=== PATIENT | male | born 1955 | race Caucasian/White ===

== ENCOUNTER 2017-09-06 08:17 | Emergency (ER) | payer BC, OTHER ==
[2017-09-06] MEDS ORDERED: Aspirin 81 MG Tab.Chew PO ONE (08:29)
[2017-09-06] MEDS ORDERED: Sodium Chloride 0.9% 10 ML Syringe FLUSH PRN (08:29)
--- NOTE | 2017-09-06 08:35 | EDM.PDOC ---
ED HPI GENERAL MEDICAL PROBLEM - General Chief Complaint: Chest Pain Stated Complaint: CHEST PAIN Time Seen by Provider: 09/06/17 08:24 Source of Information: Reports: Patient History Limitations: Reports: No Limitations - History of Present Illness INITIAL COMMENTS - FREE TEXT/NARRATIVE: The patient presents with chest pain. He said he had an episode yesterday and again this morning when he was at work. The pain was like a charley horse in his left chest. He had some shortness of breath with it. He had no nausea and he was not diaphoretic. He says the pain is gone now. He did not take aspirin. He had stents placed in his coronary arteries about 4 years ago. He sees NICO Kevin at [facility]. He still smokes and he has hypertension and hypercholesterolemia. Onset: Gradual Duration: Day(s): (Yesterday) Location: Reports: Chest Quality: Reports: Other ("Eddy Horse") Severity: Moderate (gone now) Improves with: Reports: None Worsens with: Reports: None Context: Reports: Activity (He was at work) Associated Symptoms: Reports: Chest Pain, Shortness of Breath - Related Data Allergies Allergy/AdvReac Type Severity Reaction Status Date / Time penicillin V Allergy Rash Verified 09/06/17 08:25 Home Meds: Home Meds Lisinopril 5 mg PO DAILY 09/06/17 [History] Nebivolol [Bystolic] 10 mg PO DAILY 09/06/17 [History] amLODIPine Besylate [Amlodipine Besylate] 10 mg PO DAILY 09/06/17 [History] atorvaSTATin [Lipitor] 10 mg PO DAILY 09/06/17 [History] ED ROS GENERAL - Review of Systems Review Of Systems: See Below Constitutional: Reports: No Symptoms HEENT: Reports: No Symptoms Respiratory: Reports: Shortness of Breath Cardiovascular: Reports: Chest Pain Endocrine: Reports: No Symptoms GI/Abdominal: Reports: No Symptoms : Reports: No Symptoms Musculoskeletal: Reports: No Symptoms ED EXAM, GENERAL - Physical Exam Exam: See Below Exam Limited By: No Limitations General Appearance: Alert, No Apparent Distress Ears: Normal External Exam Nose: Normal Inspection Head: Atraumatic, Normocephalic Neck: Normal Inspection Respiratory/Chest: No Respiratory Distress, Lungs Clear, Normal Breath Sounds Cardiovascular: Regular Rate, Rhythm, No Edema, No Murmur GI/Abdominal: Soft, Non-Tender, No Organomegaly, No Mass Back Exam: Normal Inspection Extremities: Normal Inspection Neurological: Alert, Oriented, No Motor/Sensory Deficits EKG INTERPRETATION EKG Date: 09/06/17 Time: 08:21 Rhythm: NSR Rate (Beats/Min): 62 [place]: Normal P-Wave: Present QRS: LBBB ST-T: Normal QT: Normal Course - Vital Signs Last Recorded V/S: Last Vital Signs Temp 97.4 F 09/06/17 08:21 Pulse 64 09/06/17 08:21 Resp 16 09/06/17 08:21 BP 176/97 H 09/06/17 08:21 Pulse Ox - Orders/Labs/Meds Orders: Active Orders 24 hr Category Date Time Status Cardiac Monitoring [RC] . DIRECTED Care 09/06/17 08:29 Active EKG Documentation Completion [RC] STAT Care 09/06/17 08:29 Active Oxygen Therapy [RC] PRN Care 09/06/17 08:29 Active Peripheral IV Care [RC] . DIRECTED Care 09/06/17 08:29 Active Sodium Chloride 0.9% [Saline Flush] Med 09/06/17 08:29 Active 10 ml FLUSH ASDIRECTED PRN Peripheral IV Insertion Adult [OM.PC] Stat Oth 09/06/17 08:29 Ordered Medication Orders Sodium Chloride (Saline Flush) 10 ml FLUSH ASDIRECTED PRN PRN Reason: Keep Vein Open Last Admin: 09/06/17 08:25 Dose: 10 ml Labs: Laboratory Tests 09/06/17 09/06/17 Range/Units 08:56 08:56 WBC 5.76 (4.23-9.07) K/mm3 RBC 5.08 (4.63-6.08) M/mm3 Hgb 16.5 (13.7-17.5) gm/L Hct 49.2 (40.1-51.0) % MCV 96.9 H (79.0-92.2) fl MCH 32.5 H (25.7-32.2) pg MCHC 33.5 (32.2-35.5) g/dl RDW Std Deviation 47.6 H (35.1-43.9) fL Plt Count 158 L (163-337) K/mm3 MPV 9.5 (9.4-12.3) fl Neut % (Auto) 66.9 (34.0-67.9) % Lymph % (Auto) 22.7 (21.8-53.1) % [place] % (Auto) 9.0 (5.3-12.2) % Eos % (Auto) 0.9 (0.8-7.0) Baso % (Auto) 0.3 (0.1-1.2) % Neut # (Auto) 3.85 (1.78-5.38) K/mm3 Lymph # (Auto) 1.31 L (1.32-3.57) K/mm3 [place]ley # (Auto) 0.52 (0.30-0.82) K/mm3 Eos # (Auto) 0.05 (0.04-0.54) K/mm3 Baso # (Auto) 0.02 (0.01-0.08) K/mm3 Sodium 139 (136-145) mEq/L Potassium 4.0 (3.5-5.1) mEq/L Chloride 103 (98-107) mEq/L Carbon Dioxide 27 (21-32) mEq/L Anion Gap 13.0 (5-15) BUN 9 (7-18) mg/dL Creatinine 0.8 (0.7-1.3) mg/dL Est Cr Clr Drug Dosing 98.85 mL/min Estimated GFR (MDRD) > 60 (>60) mL/min BUN/Creatinine Ratio 11.3 L (14-18) Glucose 87 (80-115) mg/dL Calcium 8.7 (8.5-10.1) mg/dL Total Bilirubin 0.7 (0.2-1.0) mg/dL AST 26 (15-37) U/L ALT 37 (16-63) U/L Alkaline Phosphatase 80 (46-116) U/L Troponin I < 0.017 (0.00-0.056) ng/mL Total Protein 6.9 (6.4-8.2) g/dl Albumin 3.9 (3.4-5.0) g/dl Globulin 3.0 gm/dL Albumin/Globulin Ratio 1.3 (1-2) Meds: Medications Generic Name Dose Route Start Last Admin Trade Name Freq PRN Reason Stop Dose Admin Sodium Chloride 10 ml 09/06/17 08:29 09/06/17 08:25 Saline Flush FLUSH 10 ml ASDIRECTED PRN Administration Keep Vein Open Discontinued Medications Generic Name Dose Route Start Last Admin Trade Name Siobhan PRN Reason Stop Dose Admin Aspirin 324 mg 09/06/17 08:29 09/06/17 08:33 Aspirin PO 09/06/17 08:30 324 mg ONETIME ONE Administration Aspirin Confirm 09/06/17 08:37 09/06/17 08:25 Aspirin Administered 09/06/17 08:38 Not Given Dose [address] ONE - Re-Assessments/Exams Free Text/Narrative Re-Assessment/Exam: 09/06/17 08:37 I ordered an IV saline lock, EKG, CXR, labs and aspirin. 09/06/17 10:11 His EKG shows a LBBB. He has been in a RBBB before. His CXR looks good. His CBC and CMP look good. His troponin is negative. He did have a run of tachycardia of about 12 beats at 140 while he was sleeping. I wanted him to stay for a repeat troponin but he does not want to stay. He feels good and wants to go. I will have him follow up with Glenda Sapp. Departure - Departure Time of Disposition: 10:15 Disposition: Home, Self-Care 01 Condition: Good Clinical Impression: Chest pain Qualifiers: Chest pain type: unspecified Qualified Code(s): R07.9 - Chest pain, unspecified Referrals: Glenda Davila PA-C [Primary Care Provider] - 2 Weeks Forms: ED Department Discharge Additional Instructions: Take your medications as prescribed. Follow up with Glenda Davila within 2 weeks. Please return if you are worse. - My Orders Last 24 Hours: My Active Orders 09/06/17 08:29 Cardiac Monitoring [RC] . DIRECTED EKG Documentation Completion [RC] STAT Oxygen Therapy [RC] PRN Peripheral IV Care [RC] . DIRECTED Sodium Chloride 0.9% [Saline Flush] 10 ml FLUSH ASDIRECTED PRN Peripheral IV Insertion Adult [OM.PC] Stat - Assessment/Plan Last 24 Hours: My Active Orders 09/06/17 08:29 Cardiac Monitoring [RC] . DIRECTED EKG Documentation Completion [RC] STAT Oxygen Therapy [RC] PRN Peripheral IV Care [RC] . DIRECTED Sodium Chloride 0.9% [Saline Flush] 10 ml FLUSH ASDIRECTED PRN Peripheral IV Insertion Adult [OM.PC] Stat
[2017-09-06] MEDS ORDERED: Aspirin 81 MG Tab.Chew ONE (08:37)
--- NOTE | 2017-09-06 08:59 | CR ---
Chest: Portable view of the chest was obtained. Comparison: No prior chest x-ray. Heart size and mediastinum are within normal limits for portable technique. Lungs are clear. Previous cervical spine surgery is noted. Surgical clips are seen at the base of the left side of the neck. Impression: 1. Incidental findings. Nothing acute is identified on portable chest x-ray. Diagnostic code #2
== END 2017-09-06 10:22 | disposition home or self-care (01) ==
LOC: JD.ED 08:17
DX: R07.9 Chest pain, unspecified (principal); Z88.0 Allergy status to penicillin; Z79.899 Other long term (current) drug therapy
CPT/HCPCS: 36415; 71045; 80053; 84484; 85025; 93005; 99285; A9270; J7050; 93010; 99284-25

== ENCOUNTER 2020-11-28 12:16 | Emergency (ER) | payer BC, OTHER ==
[2020-11-28] MEDS ORDERED: Acetaminophen 325 MG Tab PO PRN (12:45)
--- NOTE | 2020-11-28 12:53 | EDM.PDOC ---
ED HPI GENERAL MEDICAL PROBLEM - General Chief Complaint: Fever Stated Complaint: FEVER [id number] Time Seen by Provider: 11/28/20 12:20 Source of Information: Reports: Patient History Limitations: Reports: No Limitations, Other (ED vital signs reveal a temp of one 1.6, pulse of 73, respiratory rate of 16, blood pressure 160/107, pulse ox 89% on room air.) - History of Present Illness INITIAL COMMENTS - FREE TEXT/NARRATIVE: 65-year-old male presents to the emergency department with complaints of fever for the past 3 days. Patient states this started 3 days ago and he has been taking Tylenol. He states that the Tylenol does bring the fever down but within 4 hours the fever trends back upward again. Patient also admits to having shortness of breath but denies a cough. He states he has headache pain in the back of his head for the past 3 days. He also reports diarrhea however denies nausea, vomiting or abdominal pain. He also reports that he has had decreased appetite for the past 3 days. He states that he had a Covid test completed yesterday and they reported this is negative. He was seen at [facility] this morning and sent to the emergency department for further evaluation. Patient admits to being a heavy smoker. He states he has smoked for over 30 years. Patient is a daily alcohol drinker. His primary care physician is Glenda Sapp who is a midlevel for cardiology services in [place]. Patient does not have a local primary care physician. He carries a history of hypertension and MD with stent placement. Treatments OUT PATIENT THERAPIST: Reports: Acetaminophen Neck Pain Score (Numeric/FACES): 3 - Related Data Allergies Allergy/AdvReac Type Severity Reaction Status Date / Time penicillin V Allergy Severe Rash Verified 11/28/20 12:31 Home Meds: Home Meds Lisinopril 5 mg PO DAILY 09/06/17 [History] Nebivolol [Bystolic] 10 mg PO DAILY 09/06/17 [History] amLODIPine Besylate [Amlodipine Besylate] 10 mg PO DAILY 09/06/17 [History] atorvaSTATin [Lipitor] 10 mg PO DAILY 09/06/17 [History] Albuterol Sulfate [Albuterol Sulfate HFA] 8.5 gm INH Q2H PRN #1 inhaler 11/28/20 [Rx] Aspirin [Aspirin EC] 81 mg PO DAILY 11/28/20 [History] Doxycycline [Vibra-Tabs] 100 mg PO BID #10 tablet 11/28/20 [Rx] Past Medical History Cardiovascular History: Reports: Hypertension, MD, Stents Social & Family History - Tobacco Use Tobacco Use Status *Q: Current Every Day Tobacco User Years of Tobacco use: 52 Packs/Tins Daily: 1 - Caffeine Use Caffeine Use: Reports: Coffee - Recreational Drug Use Recreational Drug Use: No ED ROS GENERAL - Review of Systems Review Of Systems: Comprehensive ROS is negative, except as noted in HPI. ED EXAM, GENERAL - Physical Exam Exam: See Below Exam Limited By: No Limitations General Appearance: Alert, WD/WN, Mild Distress Ears: Normal External Exam, Hearing Grossly Normal Nose: Normal Inspection Throat/Mouth: Normal Inspection, Normal Lips, Normal Voice, No Airway Compromise Head: Atraumatic Neck: Normal Inspection, Supple Respiratory/Chest: No Accessory Muscle Use, Chest Non-Tender, Respiratory Distress, Rhonchi (Anteriorly), Wheezing (Fine expiratory wheezes noted posteriorly bilaterally). No: Lungs Clear, Normal Breath Sounds Cardiovascular: Normal Peripheral Pulses, Regular Rate, Rhythm, No Edema, No Murmur Peripheral Pulses: 2+: Radial (L), Radial (R) GI/Abdominal: Normal Bowel Sounds, Soft, Non-Tender, No Distention (Male) Exam: Deferred Rectal (Males) Exam: Deferred Back Exam: Normal Inspection Extremities: Normal Inspection, No Pedal Edema Neurological: Alert, Oriented, Normal Cognition Psychiatric: Normal Affect, Normal Mood Skin Exam: Warm, Dry, Intact, Normal Color, No Rash Lymphatic: No Adenopathy #1 Interpretation EKG Date: 11/28/20 Time: 12:36 Rhythm: NSR Rate (Beats/Min): 80 [place]: Normal P-Wave: Present QRS: RBBB ST-T: Normal QT: Normal EKG Interpretation Comments: Per Dr. Linares interpretation: sinus or ectopic atrial rhythm; prolonged MO interval; right bundle branch block; old inferior infarct Course - Vital Signs Text/Narrative:: Patient presents with a 3-day history of fever, shortness of breath, headache and diarrhea. States he had a negative Covid test yesterday. Was seen [facility] today and sent here to be evaluated. I have ordered a Covid quickset. Last Recorded V/S: Last Vital Signs Temp 101.1 F H 11/28/20 14:30 Pulse 67 11/28/20 14:30 Resp 24 H 11/28/20 14:30 BP 144/82 H 11/28/20 14:30 Pulse Ox 93 L 11/28/20 14:40 - Orders/Labs/Meds Orders: Active Orders 24 hr Category Date Time Status EKG Documentation Completion [RC] STAT Care 11/28/20 12:46 Active Oxygen Therapy, ED [RC] ASDIRECTED Care 11/28/20 13:02 Active RT Aerosol Therapy [RC] ASDIRECTED Care 11/28/20 14:24 Active CULTURE BLOOD [BC] Stat Lab 11/28/20 13:10 Received CULTURE BLOOD [BC] Stat Lab 11/28/20 13:18 Received PROCALCITONIN [REF] Stat Lab 11/28/20 12:30 Received Acetaminophen [TylenoL] Med 11/28/20 12:45 Active 650 mg PO Q4H PRN Sodium Chloride 0.9% [Normal Saline] 100 ml Med 11/28/20 13:30 Active IV ASDIRECTED Sodium Chloride 0.9% [Saline Flush] Med 11/28/20 13:27 Active 10 ml FLUSH ONETIME PRN Blood Culture x2 Reflex Set [OM.PC] Stat Oth 11/28/20 12:46 Ordered Isolation [COMM] Stat Oth 11/28/20 12:45 Ordered Medication Orders Acetaminophen (Acetaminophen 325 Mg Tab) 650 mg PO Q4H PRN PRN Reason: Fever Greater Than 101 Last Admin: 11/28/20 13:02 Dose: 650 mg Documented by: ANGELINA Sodium Chloride (Normal Saline) 100 mls @ 75 mls/hr IV ASDIRECTED CARMELO Last Admin: 11/28/20 13:54 Dose: 75 mls/hr Documented by: DOMINGO Sodium Chloride (Sodium Chloride 0.9% 10 Ml Syringe) 10 ml FLUSH ONETIME PRN PRN Reason: IV FLUSH Last Admin: 11/28/20 13:54 Dose: 10 ml Documented by: DOMINGO Labs: Laboratory Tests 11/28/20 11/28/20 11/28/20 Range/Units 12:16 12:30 12:30 WBC (4.23-9.07) K/mm3 RBC (4.63-6.08) M/mm3 Hgb (13.7-17.5) gm/dl Hct (40.1-51.0) % MCV (79.0-92.2) fl MCH (25.7-32.2) pg MCHC (32.2-35.5) g/dl RDW Std Deviation (35.1-43.9) fL Plt Count (163-337) K/mm3 MPV (9.4-12.3) fl Neut % (Auto) (34.0-67.9) % Lymph % (Auto) (21.8-53.1) % [place] % (Auto) (5.3-12.2) % Eos % (Auto) (0.8-7.0) Baso % (Auto) (0.1-1.2) % Neut # (Auto) (1.78-5.38) K/mm3 Lymph # (Auto) (1.32-3.57) K/mm3 [place] # (Auto) (0.30-0.82) K/mm3 Eos # (Auto) (0.04-0.54) K/mm3 Baso # (Auto) (0.01-0.08) K/mm3 PT (9.7-12.0) SECONDS INR APTT 29.9 (21.7-31.4) SECONDS D-Dimer, Quantitative (0.19-0.50) mg/L Puncture Site ABG pH (7.35-7.45) ABG pCO2 (35.0-45.0) mmHg ABG pO2 (80.0-100.0) mmHg ABG HCO3 (22.0-26.0) meq/L ABG O2 Saturation (96.0-97.0) % ABG Base Excess (-2-2.0) Corey Test A-a Gradient mmHg O2 Delivery Device Sodium (136-145) mEq/L Potassium (3.5-5.1) mEq/L Chloride (98-107) mEq/L Carbon Dioxide (21-32) mEq/L Anion Gap (5-15) BUN (7-18) mg/dL Creatinine (0.7-1.3) mg/dL Est Cr Clr Drug Dosing mL/min Estimated GFR (MDRD) (>60) mL/min BUN/Creatinine Ratio (14-18) Glucose (70-99) mg/dL Lactic Acid (0.4-2.0) mmol/L Calcium (8.5-10.1) mg/dL Magnesium 1.5 L (1.8-2.4) mg/dL Ferritin 256 (26-388) ng/ml Total Bilirubin (0.2-1.0) mg/dL AST (15-37) U/L ALT (16-63) U/L Alkaline Phosphatase (46-116) U/L Lactate Dehydrogenase (85-227) U/L C-Reactive Protein (<1.0) mg/dL Total Protein (6.4-8.2) g/dl Albumin (3.4-5.0) g/dl Globulin gm/dL Albumin/Globulin Ratio (1-2) Urine Color (Yellow) Urine Appearance (Clear) Urine pH (5.0-8.0) Ur Specific [place] (1.005-1.030) Urine Protein (Negative) Urine Glucose (UA) (Negative) Urine Ketones (Negative) Urine Occult Blood (Negative) Urine Nitrite (Negative) Urine Bilirubin (Negative) Urine Urobilinogen (0.2-1.0) Ur Leukocyte Esterase (Negative) Urine RBC (0-5) /hpf Urine WBC (0-5) /hpf Ur Squamous Epith Cells (0-5) /hpf Urine Bacteria (FEW) /hpf Urine Mucus (FEW) /hpf SARS-CoV-2 RNA (RONDA) (NEGATIVE) 11/28/20 11/28/20 11/28/20 Range/Units 12:30 12:30 12:30 WBC 9.95 H (4.23-9.07) K/mm3 RBC 4.42 L (4.63-6.08) M/mm3 Hgb 14.3 D (13.7-17.5) gm/dl Hct 42.3 (40.1-51.0) % MCV 95.7 H (79.0-92.2) fl MCH 32.4 H (25.7-32.2) pg MCHC 33.8 (32.2-35.5) g/dl RDW Std Deviation 44.6 H (35.1-43.9) fL Plt Count 129 L (163-337) K/mm3 MPV 10.2 (9.4-12.3) fl Neut % (Auto) 80.7 H (34.0-67.9) % Lymph % (Auto) 5.3 L (21.8-53.1) % [place] % (Auto) 13.8 H (5.3-12.2) % Eos % (Auto) 0 L (0.8-7.0) Baso % (Auto) 0.0 L (0.1-1.2) % Neut # (Auto) 8.03 H (1.78-5.38) K/mm3 Lymph # (Auto) 0.53 L (1.32-3.57) K/mm3 [place] # (Auto) 1.37 H (0.30-0.82) K/mm3 Eos # (Auto) 0.00 L (0.04-0.54) K/mm3 Baso # (Auto) 0.00 L (0.01-0.08) K/mm3 PT (9.7-12.0) SECONDS INR APTT (21.7-31.4) SECONDS D-Dimer, Quantitative 1.04 H (0.19-0.50) mg/L Puncture Site ABG pH (7.35-7.45) ABG pCO2 (35.0-45.0) mmHg ABG pO2 (80.0-100.0) mmHg ABG HCO3 (22.0-26.0) meq/L ABG O2 Saturation (96.0-97.0) % ABG Base Excess (-2-2.0) Corey Test A-a Gradient mmHg O2 Delivery Device Sodium 125 L D (136-145) mEq/L Potassium 3.2 L (3.5-5.1) mEq/L Chloride 90 L D (98-107) mEq/L Carbon Dioxide 26 (21-32) mEq/L Anion Gap 12.2 (5-15) BUN 8 (7-18) mg/dL Creatinine 0.9 (0.7-1.3) mg/dL Est Cr Clr Drug Dosing 84.49 mL/min Estimated GFR (MDRD) > 60 (>60) mL/min BUN/Creatinine Ratio 8.9 L (14-18) Glucose 102 H (70-99) mg/dL Lactic Acid (0.4-2.0) mmol/L Calcium 8.0 L (8.5-10.1) mg/dL Magnesium (1.8-2.4) mg/dL Ferritin (26-388) ng/ml Total Bilirubin 0.8 (0.2-1.0) mg/dL AST 19 (15-37) U/L ALT 22 (16-63) U/L Alkaline Phosphatase 62 (46-116) U/L Lactate Dehydrogenase 178 (85-227) U/L C-Reactive Protein 21.0 H* (<1.0) mg/dL Total Protein 6.5 (6.4-8.2) g/dl Albumin 3.1 L (3.4-5.0) g/dl Globulin 3.4 gm/dL Albumin/Globulin Ratio 0.9 L (1-2) Urine Color (Yellow) Urine Appearance (Clear) Urine pH (5.0-8.0) Ur Specific [place] (1.005-1.030) Urine Protein (Negative) Urine Glucose (UA) (Negative) Urine Ketones (Negative) Urine Occult Blood (Negative) Urine Nitrite (Negative) Urine Bilirubin (Negative) Urine Urobilinogen (0.2-1.0) Ur Leukocyte Esterase (Negative) Urine RBC (0-5) /hpf Urine WBC (0-5) /hpf Ur Squamous Epith Cells (0-5) /hpf Urine Bacteria (FEW) /hpf Urine Mucus (FEW) /hpf SARS-CoV-2 RNA (RONDA) (NEGATIVE) 11/28/20 11/28/20 11/28/20 Range/Units 12:30 12:47 13:17 WBC (4.23-9.07) K/mm3 RBC (4.63-6.08) M/mm3 Hgb (13.7-17.5) gm/dl Hct (40.1-51.0) % MCV (79.0-92.2) fl MCH (25.7-32.2) pg MCHC (32.2-35.5) g/dl RDW Std Deviation (35.1-43.9) fL Plt Count (163-337) K/mm3 MPV (9.4-12.3) fl Neut % (Auto) (34.0-67.9) % Lymph % (Auto) (21.8-53.1) % [place] % (Auto) (5.3-12.2) % Eos % (Auto) (0.8-7.0) Baso % (Auto) (0.1-1.2) % Neut # (Auto) (1.78-5.38) K/mm3 Lymph # (Auto) (1.32-3.57) K/mm3 [place] # (Auto) (0.30-0.82) K/mm3 Eos # (Auto) (0.04-0.54) K/mm3 Baso # (Auto) (0.01-0.08) K/mm3 PT 11.9 (9.7-12.0) SECONDS INR 1.11 APTT (21.7-31.4) SECONDS D-Dimer, Quantitative (0.19-0.50) mg/L Puncture Site Lt radial ABG pH 7.53 H (7.35-7.45) ABG pCO2 30.4 L (35.0-45.0) mmHg ABG pO2 56.0 L (80.0-100.0) mmHg ABG HCO3 25.1 (22.0-26.0) meq/L ABG O2 Saturation 89.0 L (96.0-97.0) % ABG Base Excess 3.4 H (-2-2.0) Corey Test Positive A-a Gradient 55 mmHg O2 Delivery Device Room air Sodium (136-145) mEq/L Potassium (3.5-5.1) mEq/L Chloride (98-107) mEq/L Carbon Dioxide (21-32) mEq/L Anion Gap (5-15) BUN (7-18) mg/dL Creatinine (0.7-1.3) mg/dL Est Cr Clr Drug Dosing mL/min Estimated GFR (MDRD) (>60) mL/min BUN/Creatinine Ratio (14-18) Glucose (70-99) mg/dL Lactic Acid (0.4-2.0) mmol/L Calcium (8.5-10.1) mg/dL Magnesium (1.8-2.4) mg/dL Ferritin (26-388) ng/ml Total Bilirubin (0.2-1.0) mg/dL AST (15-37) U/L ALT (16-63) U/L Alkaline Phosphatase (46-116) U/L Lactate Dehydrogenase (85-227) U/L C-Reactive Protein (<1.0) mg/dL Total Protein (6.4-8.2) g/dl Albumin (3.4-5.0) g/dl Globulin gm/dL Albumin/Globulin Ratio (1-2) Urine Color (Yellow) Urine Appearance (Clear) Urine pH (5.0-8.0) Ur Specific [place] (1.005-1.030) Urine Protein (Negative) Urine Glucose (UA) (Negative) Urine Ketones (Negative) Urine Occult Blood (Negative) Urine Nitrite (Negative) Urine Bilirubin (Negative) Urine Urobilinogen (0.2-1.0) Ur Leukocyte Esterase (Negative) Urine RBC (0-5) /hpf Urine WBC (0-5) /hpf Ur Squamous Epith Cells (0-5) /hpf Urine Bacteria (FEW) /hpf Urine Mucus (FEW) /hpf SARS-CoV-2 RNA (RONDA) Negative (NEGATIVE) 11/28/20 11/28/20 Range/Units 13:18 13:35 WBC (4.23-9.07) K/mm3 RBC (4.63-6.08) M/mm3 Hgb (13.7-17.5) gm/dl Hct (40.1-51.0) % MCV (79.0-92.2) fl MCH (25.7-32.2) pg MCHC (32.2-35.5) g/dl RDW Std Deviation (35.1-43.9) fL Plt Count (163-337) K/mm3 MPV (9.4-12.3) fl Neut % (Auto) (34.0-67.9) % Lymph % (Auto) (21.8-53.1) % [place] % (Auto) (5.3-12.2) % Eos % (Auto) (0.8-7.0) Baso % (Auto) (0.1-1.2) % Neut # (Auto) (1.78-5.38) K/mm3 Lymph # (Auto) (1.32-3.57) K/mm3 [place] # (Auto) (0.30-0.82) K/mm3 Eos # (Auto) (0.04-0.54) K/mm3 Baso # (Auto) (0.01-0.08) K/mm3 PT (9.7-12.0) SECONDS INR APTT (21.7-31.4) SECONDS D-Dimer, Quantitative (0.19-0.50) mg/L Puncture Site ABG pH (7.35-7.45) ABG pCO2 (35.0-45.0) mmHg ABG pO2 (80.0-100.0) mmHg ABG HCO3 (22.0-26.0) meq/L ABG O2 Saturation (96.0-97.0) % ABG Base Excess (-2-2.0) Corey Test A-a Gradient mmHg O2 Delivery Device Sodium (136-145) mEq/L Potassium (3.5-5.1) mEq/L Chloride (98-107) mEq/L Carbon Dioxide (21-32) mEq/L Anion Gap (5-15) BUN (7-18) mg/dL Creatinine (0.7-1.3) mg/dL Est Cr Clr Drug Dosing mL/min Estimated GFR (MDRD) (>60) mL/min BUN/Creatinine Ratio (14-18) Glucose (70-99) mg/dL Lactic Acid 1.0 (0.4-2.0) mmol/L Calcium (8.5-10.1) mg/dL Magnesium (1.8-2.4) mg/dL Ferritin (26-388) ng/ml Total Bilirubin (0.2-1.0) mg/dL AST (15-37) U/L ALT (16-63) U/L Alkaline Phosphatase (46-116) U/L Lactate Dehydrogenase (85-227) U/L C-Reactive Protein (<1.0) mg/dL Total Protein (6.4-8.2) g/dl Albumin (3.4-5.0) g/dl Globulin gm/dL Albumin/Globulin Ratio (1-2) Urine Color Dark yellow (Yellow) Urine Appearance Clear (Clear) Urine pH 7.0 (5.0-8.0) Ur Specific [place] 1.025 (1.005-1.030) Urine Protein 2+ H (Negative) Urine Glucose (UA) Negative (Negative) Urine Ketones 3+ H (Negative) Urine Occult Blood Trace-lysed H (Negative) Urine Nitrite Negative (Negative) Urine Bilirubin 1+ H (Negative) Urine Urobilinogen 2.0 H (0.2-1.0) Ur Leukocyte Esterase Negative (Negative) Urine RBC 5-10 H (0-5) /hpf Urine WBC 0-5 (0-5) /hpf Ur Squamous Epith Cells 0-5 (0-5) /hpf Urine Bacteria Few (FEW) /hpf Urine Mucus Few (FEW) /hpf SARS-CoV-2 RNA (RONDA) (NEGATIVE) Meds: Medications Generic Name Dose Route Start Last Admin Trade Name Bruceq PRN Reason Stop Dose Admin Acetaminophen 650 mg 11/28/20 12:45 11/28/20 13:02 Acetaminophen 325 Mg Tab PO 650 mg Q4H PRN Administration Fever Greater Than 101 Sodium Chloride 100 mls @ 75 mls/hr 11/28/20 13:30 11/28/20 13:54 Normal Saline IV 75 mls/hr ASDIRECTED CARMELO Administration Sodium Chloride 10 ml 11/28/20 13:27 11/28/20 13:54 Sodium Chloride 0.9% 10 Ml Syringe FLUSH 10 ml ONETIME PRN Administration IV FLUSH Discontinued Medications Generic Name Dose Route Start Last Admin Trade Name Bruceq PRN Reason Stop Dose Admin Albuterol 2.5 mg 11/28/20 14:24 11/28/20 14:40 Albuterol 0.083% 2.5 Mg/3 Ml Neb Soln NEB 11/28/20 14:25 2.5 mg ONETIME ONE Administration Sodium Chloride 500 mls @ 500 mls/hr 11/28/20 13:23 11/28/20 13:50 Normal Saline IV 11/28/20 14:22 500 mls/hr .BOLUS ONE Administration Ceftriaxone Sodium 1 gm/ 100 mls @ 200 mls/hr 11/28/20 14:05 11/28/20 14:24 Sodium Chloride IV 11/28/20 14:34 200 mls/hr ONETIME ONE Administration Iopamidol 100 ml 11/28/20 13:27 11/28/20 13:54 Iopamidol 755 Mg/Ml 100 Ml Bottle IVPUSH 11/28/20 13:28 100 ml ONETIME ONE Administration Potassium Chloride 40 meq 11/28/20 13:23 11/28/20 13:49 Potassium Chloride 20 Meq Tab.Er PO 11/28/20 13:24 40 meq ONETIME ONE Administration - Re-Assessments/Exams Free Text/Narrative Re-Assessment/Exam: 11/28/20 14:03 Hematology reveals a WBC of 9.95, hemoglobin 14.3, hematocrit 42.3, platelet count 129, neutrophil percentage 80.7, lymphocyte percentage 5.3, pro time 11.9, INR 1.11, PTT 29.9, D-dimer 1.04 chemistry reveals a sodium of 125, potassium 3.2, chloride 90, anion gap 12.2, BUN 8, creatinine 0.9, glucose 102, calcium 8.0, ferritin 256, total bili 0.8, AST 19, ALT 22, alk phos 62, LDH 178, C- reactive protein 21.0, albumin 3.1 Blood gases reveal a pH of 7.53, PCO2 of 30.4, PO2 of 56.0, bicarb 25.1, O2 saturation 89%, base excess 3.4 Urinalysis reveals 2+ protein, 3+ ketones, trace of lysed occult blood, nitrite negative, 1+ bilirubin, 2.0 urobilinogen, leukocyte Estrace negative Due to patient's D-dimer being elevated I have ordered a CTA of the chest. He will also receive normal saline of 500 mL bolus and 40 mEq of potassium oral. I have discussed with the patient my findings thus far and he is adamant that he will not be staying or admitted into the hospital. He has stated this when I initially evaluated him as well. 11/28/20 14:04 Radiologist impression portable view of the chest: 1. Consolidating density within the right mid and lower lung most likely representing diffuse pneumonia. Follow-up chest x-ray is recommended to ensure this finding resolves. 2. Mild perihilar interstitial changes noted on the left side, compatible with diffuse bronchitis. 11/28/20 14:07 I have ordered for the patient to receive 1 g of Rocephin IV to treat the pneumonia. Awaiting the remainder of the labs and CT results. 11/28/20 14:10 Patient's lactic acid level is 1.0 and Covid swab is negative. 11/28/20 14:[address] of the chest: Pulmonary arteries are well opacified. No filling defects are seen to indicate pulmonary embolism. Thoracic aorta shows no aneurysm. Small scattered mediastinal lymph nodes are seen. Mild coronary artery atherosclerotic changes seen. No pericardial thickening is seen. Visualized upper abdominal structures show no acute abnormality. Consolidating density is seen within the right upper lung and extending into the right middle lobe. Very slight density is seen within the left upper lung in a peripheral location. Mild increased density is also noted within the right lung base. Lungs otherwise are clear. Small right-sided pleural effusion is noted. Bone window settings were reviewed which show no acute osseous finding several old healed rib fractures are noted on the left side. 11/28/20 14:27 I discussed the patient's radiology and lab results with him. He is currently receiving his infusion of Rocephin and is asking to leave right now. I have convinced him to stay to finish out the IV infusion of Rocephin and to receive albuterol nebulizer treatment. He states then he is leaving. I discussed the fact that he is requiring oxygen and he is indifferent to that. I also notified him that the potential for him leaving could result in due to his pneumonia and he is still adamantly refusing to be admitted to the hospital. We will discharge him home with a prescription for Zithromax and an albuterol inhaler. 11/28/20 14:41 Patient will not receive Zithromax as it could very likely widen the QRS complex as he is taking diastolic. He is allergic to penicillins so I am leery to treat him with Augmentin. He will be treated with doxycycline 100 mg twice daily. Departure - Departure Time of Disposition: 14:51 Disposition: Home, Self-Care 01 Condition: Fair Clinical Impression: Hyponatremia, Hypokalemia, Hypomagnesemia Pneumonia Qualifiers: Pneumonia type: due to unspecified organism Laterality: right Lung location: upper lobe of lung Qualified Code(s): J18.9 - Pneumonia, unspecified organism - Discharge Information Prescriptions: Albuterol Sulfate [Albuterol Sulfate HFA] 8.5 gm INH Q2H PRN #1 inhaler PRN Reason: Shortness Of Breath Doxycycline [Vibra-Tabs] 100 mg PO BID #10 tablet Instructions: Hyponatremia, [id number], Community-Acquired Pneumonia, Adult, [id number], Hypomagnesemia, Hypokalemia Referrals: PCP,None [Primary Care Provider] - Forms: ED Department Discharge Additional Instructions: You were seen in the emergency department today with complaints of shortness of breath, fever and diarrhea that started 3 days ago. Labs were completed as well as Covid swab, chest x-ray, EKG and a CT of the chest. Your labs do show that you have infection. You also have low potassium and sodium levels. You were given IV fluids and oral potassium to supplement this. Your chest x-ray and CT scan did show that you have pneumonia in the right upper and middle lung. While in the emergency department you received IV antibiotics. You also received an albuterol nebulizer treatment to help open up your lungs. You also are requiring oxygen at 2 L. It is strongly recommended that you stay and be t reated for infection with IV antibiotics in the hospital. However, you are refusing to stay. You have been notified that going AGAINST MEDICAL ADVICE could result in . I have sent a prescription for antibiotics to your pharmacy. You need to take 1 tab twice daily until gone. I have also sent prescription for an albuterol inhaler. You can take 1 puff every 2 hours as needed for shortness of breath. Strongly recommend that you follow-up with your primary care provider in about 1 week for recheck of your pneumonia to make sure it is resolving. I also recommend that you drink Gatorade or Powerade to replenish your electrolytes that are depleted. Should your condition worsen or change, do not hesitate returning to the emergency department. Sepsis Event Note (ED) - Evaluation Sepsis Screening Result: No Definite Risk - Focused Exam Vital Signs: Vital Signs Temp Temp Pulse Resp BP Pulse Ox Pulse Ox 11/28/20 14:40 93 L 11/28/20 14:30 101.1 F H 67 24 H 144/82 H 90 L 11/28/20 14:20 68 24 H 142/82 H 92 L 11/28/20 13:02 101.6 F H 11/28/20 12:25 101.6 F H 73 16 160/107 H 89 L - My Orders Last 24 Hours: My Active Orders 11/28/20 12:30 PROCALCITONIN [REF] Stat 11/28/20 12:45 Acetaminophen [TylenoL] 650 mg PO Q4H PRN Isolation [COMM] Stat 11/28/20 12:46 EKG Documentation Completion [RC] STAT Blood Culture x2 Reflex Set [OM.PC] Stat 11/28/20 13:02 Oxygen Therapy, ED [RC] ASDIRECTED 11/28/20 13:10 CULTURE BLOOD [BC] Stat 11/28/20 13:18 CULTURE BLOOD [BC] Stat 11/28/20 13:27 Sodium Chloride 0.9% [Saline Flush] 10 ml FLUSH ONETIME PRN 11/28/20 13:30 Sodium Chloride 0.9% [Normal Saline] 100 ml IV ASDIRECTED 11/28/20 14:24 RT Aerosol Therapy [RC] ASDIRECTED - Assessment/Plan Last 24 Hours: My Active Orders 11/28/20 12:30 PROCALCITONIN [REF] Stat 11/28/20 12:45 Acetaminophen [TylenoL] 650 mg PO Q4H PRN Isolation [COMM] Stat 11/28/20 12:46 EKG Documentation Completion [RC] STAT Blood Culture x2 Reflex Set [OM.PC] Stat 11/28/20 13:02 Oxygen Therapy, ED [RC] ASDIRECTED 11/28/20 13:10 CULTURE BLOOD [BC] Stat 11/28/20 13:18 CULTURE BLOOD [BC] Stat 11/28/20 13:27 Sodium Chloride 0.9% [Saline Flush] 10 ml FLUSH ONETIME PRN 11/28/20 13:30 Sodium Chloride 0.9% [Normal Saline] 100 ml IV ASDIRECTED 11/28/20 14:24 RT Aerosol Therapy [RC] ASDIRECTED
[2020-11-28] MEDS ORDERED: Sodium Chloride 0.9% 500 ML IV ONE (13:23)
[2020-11-28] MEDS ORDERED: Potassium Chloride 20 MEQ Tab.ER PO ONE (13:23)
[2020-11-28] MEDS ORDERED: Iopamidol 755 Mg/ML 100 ML Bottle IVPUSH ONE (13:27)
[2020-11-28] MEDS ORDERED: Sodium Chloride 0.9% 10 ML Syringe FLUSH PRN (13:27)
[2020-11-28] MEDS ORDERED: Sodium Chloride 0.9% 100 ML IV SCH (13:30)
--- NOTE | 2020-11-28 13:52 | CR ---
Chest: Portable view of the chest was obtained. Comparison: Prior chest x-ray on 09/06/17. Consolidating density is seen within the right midlung and lower lung. Lesser density is seen within the left perihilar region. Heart size appears within normal limits for portable technique. Upper mediastinum is normal. Prior cervical spine surgery is noted. Surgical clips are seen within the left neck. Impression: 1. Consolidating density within the right mid and lower lung most likely representing diffuse pneumonia. Follow-up chest x-ray is recommended to ensure this finding resolves. 2. Mild perihilar interstitial change is noted on the left side compatible with diffuse bronchitis. Diagnostic code #3
[2020-11-28] MEDS ORDERED: cefTRIAXone 1 GM in Sodium Chloride 0.9% 100 ML IV ONE (14:05)
--- NOTE | 2020-11-28 14:19 | CT ---
CT chest Technique: Multiple axial sections through the chest were obtained. Intravenous contrast was utilized. Study performed as a pulmonary angiogram protocol. Comparison: Prior chest x-ray performed earlier on the same day (12:59 PM). No prior chest CT is available. Findings: Pulmonary arteries are well opacified. No filling defects are seen to indicate pulmonary embolism. Thoracic aorta shows no aneurysm. Small scattered mediastinal lymph nodes are seen. Mild coronary artery atherosclerotic change is seen. No pericardial thickening is seen. Visualized upper abdominal structures show no acute abnormality. Consolidating density is seen within the right upper lung and extending into the right middle lobe. Very slight density is seen within the left upper lung in a peripheral location. Mild increased density is also noted within the right lung base. Lungs otherwise are clear. Small right-sided pleural effusion is noted. Bone window settings were reviewed which show no acute osseous finding. Several old healed rib fractures are noted on the left side. Impression: 1. Consolidation within the right upper lung extending into the right middle lobe. Lesser change within the left upper lung and right lower lung. Findings most likely represent diffuse pneumonia. 2. No findings of pulmonary embolism. 3. Small pleural effusion on the right side. Mild atherosclerotic change within the coronary arteries. 4. Slightly prominent lymph nodes within the mediastinum which are most likely reactive from the presumed pneumonia. Note: Follow-up chest x-ray recommended after clinical therapy is complete to ensure findings resolve. Diagnostic code #3
[2020-11-28] MEDS ORDERED: Albuterol 0.083% 2.5 MG/3 ML Neb Soln NEB ONE (14:24)
== END 2020-11-28 15:05 | disposition home or self-care (01) ==
LOC: JD.ED 12:16
DX: J18.9 Pneumonia, unspecified organism (principal); E83.51 Hypocalcemia; E87.6 Hypokalemia; E87.0 Hyperosmolality and hypernatremia; I10 Essential (primary) hypertension; I25.2 Old myocardial infarction; Z95.5 Presence of coronary angioplasty implant and graft; Z79.899 Other long term (current) drug therapy; Z88.0 Allergy status to penicillin; Z72.0 Tobacco use; Z20.822 Contact with and (suspected) exposure to COVID-19
CPT/HCPCS: 36415; 36600; 71045; 71275; 80053; 81001; 82728; 82803; 83605; 83615; 83735; 84145; 85025; 85379; 85610; 85730; 86140; 87040; 87635; 93005; 94640; 96365; 99285; A9270; J0696; J7030; Q9967; 93010; 99284; U0002